=== PATIENT | female | born 1955 | race Caucasian/White ===

== ENCOUNTER → 2018-06-13 08:19 | Outpatient (CLI) | payer OTHER, SELFPAY ==
--- NOTE | 2018-06-13 08:23 | BI_ITS ---
MAMMOGRAPHY - BILATERAL SCREENING REASON FOR EXAM: Female, 63 years old. Routine annual screening examination. PERTINENT HISTORY: Non-contributory. TECHNIQUE: Digital bilateral breast manoj (3D mammographic acquisition) in the CC and MLO projections. 2-D mediolateral oblique (MLO) and craniocaudad (CC) views of both breasts were obtained. CAD: Full Field Digital Mammography with Computer Added Detection was performed. COMPARISON: Comparison is made with prior study date May 16, 2017. FINDINGS: Breast Composition: The breasts are heterogeneously dense, which may obscure small masses. There are no dominant masses or suspicious calcifications. Stable scattered bilateral microcalcifications. No focal cluster is seen. No other significant abnormalities are identified. There has been no significant change since the prior study. BI/SCREENING MAMM (CAD), BILAT IMPRESSION: Stable bilateral screening mammogram. Yearly follow-up mammogram recommended. (A) ASSESSMENT CATEGORY: BIRADS Category 2: Benign. A letter regarding these results will be sent to the patient by the facility within 30 days. Approximately 10% of breast cancers are not detected by mammography. A normal mammogram should not delay biopsy of a clinically suspicious abnormality. [id number] Electronically Signed: Reza Tee MD at 11:18 EDT Tel [phone], Service support ,
[2018-06-13 09:02] LABS: Cholesterol 258 mg/dL (200); High Density Lipoprotein 85 mg/dL; Triglycerides 46 mg/dL; Very Low Density Lipoprotein 9 mg/dL (5-40)
== END ==
PROVIDERS: Family Provider Family Medicine; PCP Family Medicine; Visit Provider Obstetrics & Gynecology
DX: Z12.31 Encounter for screening mammogram for malignant neoplasm of breast (principal); Z13.220 Encounter for screening for lipoid disorders
CPT/HCPCS: 36415; 77063; 77067; 80061

== ENCOUNTER → 2019-08-28 07:34 | Outpatient (CLI) | payer OTHER, SELFPAY ==
[2019-08-18 10:59] VITALS: BMI 20.7
--- NOTE | 2019-08-28 07:35 | BI_ITS ---
MAMMOGRAPHY - BILATERAL SCREENING 3-D TOMOSYNTHESIS REASON FOR EXAM: Female, 64 years old. Annual screening mammogram. PERTINENT HISTORY: History of breast cancer in sister at age 66. TECHNIQUE: 2-D mammograms and 3-D Tomosynthesis of the breast (s) were performed. CAD was performed. COMPARISON: June 13, 2018, May 16, 2017 FINDINGS: The breast composition is heterogeneously dense that can obscure small breast masses. Scattered benign calcifications are seen. No dense spiculated masses or suspicious microcalcifications are identified. No architectural distortion is identified. There is no skin thickening or retraction. There has been no significant change since the prior study. BI/SCREEN MAMM (CAD) W/KAYLA BILAT IMPRESSION: No mammographic signs of malignancy. Routine yearly mammograms recommended. ASSESSMENT CATEGORY: BIRADS Category 2: Benign. A letter regarding these results will be sent to the patient by the facility within 30 days. FOLLOW UP RECOMMENDATION: Yearly follow up mammogram recommended. (A) Approximately 10% of breast cancers are not detected by mammography. A normal mammogram should not delay biopsy of a clinically suspicious abnormality. Electronically Signed: Anmol Timmons MD at 11:50 EST , Service support ,
[2019-08-28 09:00] LABS: Anion Gap 6 (5-15); BUN 17 mg/dL (7-18); BUN/Creat Ratio 31.1 RATIO (10-20); Calcium,Total 8.9 mg/dL (8.5-10.1); Chloride 106 mmol/L (98-107); Cholesterol 247 mg/dL (200); Creatinine, Serum 0.55 mg/dL (0.55-1.02); EST Glomerular Filtration Rate 119 mL/min (>60); Est Glom Filt Rate - Afr Amer 144 mL/min (>60); Glucose 94 mg/dL (74-106); High Density Lipoprotein 91 mg/dL; Potassium 3.9 mmol/L (3.5-5.1); Sodium Level 142 mmol/L (136-145); Thyroid Stim Hormone (TSH) 1.53 uIU/mL (0.358-3.74); Triglycerides 47 mg/dL; Very Low Density Lipoprotein 9 mg/dL (5-40)
== END ==
LOC: OPBI 07:35 → PAVLAB 07:57
PROVIDERS: Family Provider Family Medicine; PCP Family Medicine; Referring Provider Obstetrics & Gynecology; Visit Provider Obstetrics & Gynecology
DX: Z01.419 Encounter for gynecological examination (general) (routine) without abnormal findings (principal); Z13.220 Encounter for screening for lipoid disorders; Z13.29 Encounter for screening for other suspected endocrine disorder; Z13.1 Encounter for screening for diabetes mellitus; Z12.31 Encounter for screening mammogram for malignant neoplasm of breast
CPT/HCPCS: 36415; 77063; 77067; 80048; 80061; 84443

== ENCOUNTER → 2020-09-20 11:35 | Outpatient (CLI) | payer OTHER, SELFPAY ==
[2019-08-18 10:59] VITALS: BMI 20.7
[2020-09-20 11:04] VITALS: BMI 21.7
--- NOTE | 2020-09-20 11:37 | BI_ITS ---
MAMMOGRAPHY - BILATERAL SCREENING REASON FOR EXAM: Female, 65 years old. Routine annual screening examination. PERTINENT HISTORY: Sister with breast cancer. TECHNIQUE: Digital bilateral breast kayla (3D mammographic acquisition) in the CC and MLO projections. 2-D mediolateral oblique (MLO) and craniocaudad (CC) views of both breasts were obtained. CAD: Full Field Digital Mammography with Computer Added Detection was performed. COMPARISON: Comparison is made with prior examination dated 08/28/2019 and 06/13/2018. FINDINGS: Breast Composition: The breasts are heterogeneously dense, which may obscure small masses. There are no dominant masses or suspicious calcifications. No other significant abnormalities are identified. There has been no significant change since the prior study. BI/SCRN MAMM (CAD)W/KAYLA BILAT IMPRESSION: Stable bilateral screening mammogram. Yearly follow-up mammogram recommended. (A) ASSESSMENT CATEGORY: BIRADS Category 1: Negative. A letter regarding these results will be sent to the patient by the facility within 30 days. Approximately 10% of breast cancers are not detected by mammography. A normal mammogram should not delay biopsy of a clinically suspicious abnormality. [id number] Electronically Signed: Reza Tee MD at 13:33 EST , Service support ,
== END ==
PROVIDERS: PCP Family Medicine; Referring Provider Obstetrics & Gynecology; Visit Provider Obstetrics & Gynecology
DX: Z12.31 Encounter for screening mammogram for malignant neoplasm of breast (principal); Z80.3 Family history of malignant neoplasm of breast
CPT/HCPCS: 77063; 77067

== ENCOUNTER → 2020-09-30 09:47 | Outpatient (CLI) | payer OTHER, SELFPAY ==
[2020-09-20 11:04] VITALS: BMI 21.7
--- NOTE | 2020-09-30 09:51 | BD_ITS ---
STUDY: DUAL ENERGY X-RAY ABSORPTIOMETRY / DXA REASON FOR EXAM: Female, 65 years old. 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 COMPARISON: Comparison is made with prior study dated 06/14/2017. FINDINGS: Lumbar Spine (L1-L4): g/cm2 (0.938) / T-score (-2.0) / Z-score (-0.5) Findings are suggestive of osteopenia with a moderate fracture risk. Left Femur Total: g/cm2 (0.809) / T-score (-1.6) / Z-score (-0.4) Left Femoral Neck: g/cm2 (0.806) / T-score (-1.7) / Z-score (-0.2) Right Femur Total: g/cm2 (0.787) / T-score (-1.8) / Z-score (-0.6) Right Femoral Neck: g/cm2 (0.797) / T-score (-1.7) / Z-score (-0.3) The T-Scores on the most recent prior examination were: Lumbar Spine (L1-L4): There has been worsening of bone density since the previous examination. Left Femur Total: which represents a worsening of 2.2%. Right Femur Total: which represents a worsening of 1.3%. BD/Dexa Bone Density Study IMPRESSION: The patient is considered osteopenic as outlined below according to World Carlin Organization (WHO) criteria with a moderate fracture risk. There has been worsening of bone density since the previous examination. Reference Information: The T-score is the number of standard deviations above or below the standard which is normal for young adults at their peak bone mineral density. The World Health Organization (WHO) interprets the T-scores as follows: Above -1 Normal bone density Between -1 and -2.5 Osteopenia Equal to / or below -2.5 Osteoporosis As a practical clinical guideline, osteopenia may be graded as follows: Mild -1 through -1.5 Moderate -1.6 through -2.0 Severe -2.1 through -2.4 The Z-score is the number of standard deviations above or below age-matched controls. A Z-score of less than -1.5 would be considered abnormal. References: 1. NIH Osteoporosis and Related Bone Diseases www osteo.org 2. International Society for Clinical Densitometry www iscd.org 3. National Osteoporosis Foundation www nof.org Electronically Signed: Reza Tee MD at 10:29 EST , Service support ,
== END ==
PROVIDERS: PCP Family Medicine; Referring Provider Nurse Practitioner Women's Health; Visit Provider Nurse Practitioner Women's Health
DX: M85.80 Other specified disorders of bone density and structure, unspecified site (principal)
CPT/HCPCS: 77080

== ENCOUNTER 2021-09-16 08:19 | Outpatient (CLI) | payer OTHER, SELFPAY ==
[2021-09-16 10:35] LABS: Anion Gap 4 (5-15); BUN 14 mg/dL (7-18); BUN/Creat Ratio 25.2 RATIO (10-20); Calcium,Total 9.3 mg/dL (8.5-10.1); Chloride 105 mmol/L (98-107); Cholesterol 245 mg/dL (200); Creatinine, Serum 0.56 mg/dL (0.55-1.02); EST Glomerular Filtration Rate 116 mL/min (>60); Est Glom Filt Rate - Afr Amer 141 mL/min (>60); Glucose 95 mg/dL (74-106); High Density Lipoprotein 78 mg/dL; Sodium Level 138 mmol/L (136-145); Thyroid Stim Hormone (TSH) 1.85 uIU/mL (0.358-3.74); Triglycerides 70 mg/dL; Very Low Density Lipoprotein 14 mg/dL (5-40)
== END 2021-09-16 23:59 | disposition short-term general hospital (02) ==
LOC: MTLAB 08:22
PROVIDERS: PCP Family Medicine; Referring Provider Family Medicine; Visit Provider Family Medicine
DX: E78.00 Pure hypercholesterolemia, unspecified (principal); M85.80 Other specified disorders of bone density and structure, unspecified site
CPT/HCPCS: 36415; 80048; 80061; 82306; 84443

== ENCOUNTER 2021-09-29 09:07 | Outpatient (CLI) | payer OTHER, SELFPAY ==
--- NOTE | 2021-09-29 09:09 | BI_ITS ---
MAMMOGRAPHY - BILATERAL SCREENING REASON FOR EXAM: Female, 66 years old. Routine annual screening examination. PERTINENT HISTORY: Sister with breast cancer. History of prior left needle breast biopsy. TECHNIQUE: Digital bilateral breast kayla (3D mammographic acquisition) in the CC and MLO projections. 2-D mediolateral oblique (MLO) and craniocaudad (CC) views of both breasts were obtained. CAD: Full Field Digital Mammography with Computer Added Detection was performed. COMPARISON: Comparison is made with prior study dated 09/20/2020 and 08/28/2019. FINDINGS: Breast Composition: The breasts are extremely dense, which lowers the sensitivity of mammography. There are no dominant masses or suspicious calcifications. Stable bilateral macrocalcifications. No other significant abnormalities are identified. There has been no significant change since the prior study. BI/SCRN MAMM (CAD)W/KAYLA BILAT IMPRESSION: Stable bilateral screening mammogram. Yearly follow-up mammogram recommended. (A) ASSESSMENT CATEGORY: BIRADS Category 2: Benign. A letter regarding these results will be sent to the patient by the facility within 30 days. Approximately 10% of breast cancers are not detected by mammography. A normal mammogram should not delay biopsy of a clinically suspicious abnormality. [id number] Electronically Signed: Reaz Tee MD at 10:07 EST ,
== END 2021-09-29 23:59 | disposition short-term general hospital (02) ==
LOC: OPBI 09:08
PROVIDERS: PCP Family Medicine; Referring Provider Obstetrics & Gynecology; Visit Provider Obstetrics & Gynecology
DX: Z12.31 Encounter for screening mammogram for malignant neoplasm of breast (principal)
CPT/HCPCS: 77063; 77067

== ENCOUNTER → 2022-09-13 | Outpatient (CLI) | payer OTHER, SELFPAY ==
--- NOTE | 2022-09-13 16:22 | RAD_ITS ---
STUDY: X-RAY - LEFT FOOT CLINICAL: Female, 67 years old. Pain. TECHNIQUE: 3 weightbearing view(s) of the foot. COMPARISON: None. FINDINGS: Normal talus, calcaneus, and tarsal bones. Normal visualized subtalar, talonavicular, calcaneocuboid, tarsal and tarsometatarsal articulations. Normal metatarsi. Postsurgical changes of hallux valgus repair with mild arthrosis of the first MTP joint. Mild arthrosis of the MTP and IP joints with minimal hammertoe deformities . Normal soft tissues. RAD/Foot min 3 Views IMPRESSION: Postsurgical changes of the first metatarsal with mild osteoarthritic change. No acute abnormality, chondrocalcinosis or erosive changes. Electronically Signed: Anmol Timmons, at 10:10 EST ,
== END | disposition home or self-care (01) ==
PROVIDERS: PCP Family Medicine; Referring Provider Podiatrist; Visit Provider Podiatrist
DX: M19.072 Primary osteoarthritis, left ankle and foot (principal); M20.42 Other hammer toe(s) (acquired), left foot; M20.12 Hallux valgus (acquired), left foot
CPT/HCPCS: 73630

== ENCOUNTER → 2022-10-03 | Outpatient (CLI) | payer OTHER, SELFPAY ==
--- NOTE | 2022-10-03 12:49 | BI_ITS ---
MAMMOGRAPHY - BILATERAL SCREENING REASON FOR EXAM: Female, 67 years old. Routine annual screening examination. PERTINENT HISTORY: Sister with breast cancer. Remote left breast aspiration. TECHNIQUE: Digital bilateral breast kayla (3D mammographic acquisition) in the CC and MLO projections. 2-D mediolateral oblique (MLO) and craniocaudad (CC) views of both breasts were obtained. CAD: Full Field Digital Mammography with Computer Added Detection was performed. COMPARISON: Comparison is made with prior examination of 03/29/2022 and 09/20/2020. FINDINGS: Breast Composition: The breasts are extremely dense, which lowers the sensitivity of mammography. There are no dominant masses or suspicious calcifications. No other significant abnormalities are identified. There has been no significant change since the prior study. BI/SCRN MAMM (CAD)W/KAYLA BILAT IMPRESSION: Stable bilateral screening mammogram. Yearly follow-up mammogram recommended. (A) ASSESSMENT CATEGORY: BIRADS Category 1: Negative. A letter regarding these results will be sent to the patient by the facility within 30 days. Approximately 10% of breast cancers are not detected by mammography. A normal mammogram should not delay biopsy of a clinically suspicious abnormality. [id number] Electronically Signed: Reza Tee MD at 13:56 EST ,
--- NOTE | 2022-10-03 12:54 | BD_ITS ---
STUDY: DUAL ENERGY X-RAY ABSORPTIOMETRY / DXA REASON FOR EXAM: Female, 67 years old. [id number] TECHNIQUE: Bone Mineral Density (BMD) measurements of lumbar spine and bilateral hips were obtained. COMPARISON: Comparison is made with prior study dated 09/30/2020. FINDINGS: Lumbar Spine (L1-L4): g/cm2 (0.753) / T-score (-2.7) / Z-score (-0.8) Findings are suggestive of osteoporosis with a high fracture risk. Left Femur Total: g/cm2 (0.781) / T-score (-1.3) / Z-score (0.0) Left Femoral Neck: g/cm2 (0.700) / T-score (-1.3) / Z-score (0.2) Right Femur Total: g/cm2 (0.720) / T-score (-1.8) / Z-score (-0.5) Right Femoral Neck: g/cm2 (0.635) / T-score (-1.9) / Z-score (-0.3) The T-Scores on the most recent prior examination were: Lumbar Spine (L1-L4): There has been worsening of bone density since the previous examination. Left Femur Total: which represents an improvement of 4.3%. Right Femur Total: which represents a worsening of 1%. BD/Dexa Bone Density Study IMPRESSION: The patient is considered osteoporotic as outlined below according to World Car[employer] Organization (WHO) criteria with a high fracture risk. There has been worsening of bone density since the previous examination. Reference Information: The T-score is the number of standard deviations above or below the standard which is normal for young adults at their peak bone mineral density. The World Health Organization (WHO) interprets the T-scores as follows: Above -1 Normal bone density Between -1 and -2.5 Osteopenia Equal to / or below -2.5 Osteoporosis As a practical clinical guideline, osteopenia may be graded as follows: Mild -1 through -1.5 Moderate -1.6 through -2.0 Severe -2.1 through -2.4 The Z-score is the number of standard deviations above or below age-matched controls. A Z-score of less than -1.5 would be considered abnormal. References: 1. NIH Osteoporosis and Related Bone Diseases www osteo.org 2. International Society for Clinical Densitometry www iscd.org 3. National Osteoporosis Foundation www nof.org Electronically Signed: Reza Tee MD at 9:59 EST ,
== END | disposition home or self-care (01) ==
LOC: OPBI 12:46
PROVIDERS: PCP Family Medicine; Referring Provider Obstetrics & Gynecology; Visit Provider Obstetrics & Gynecology
DX: Z00.00 Encounter for general adult medical examination without abnormal findings (principal); Z12.31 Encounter for screening mammogram for malignant neoplasm of breast; M81.0 Age-related osteoporosis without current pathological fracture; Z80.3 Family history of malignant neoplasm of breast; M85.80 Other specified disorders of bone density and structure, unspecified site
CPT/HCPCS: 77063; 77067; 77080

== ENCOUNTER → 2022-10-06 | Outpatient (CLI) | payer OTHER, SELFPAY ==
[2022-10-06 10:42] LABS: PTHIN 34.1 pg/mL (18.4-80.1)
[2022-10-06 10:45] LABS: Vitamin D,25 Hydroxy 28.4 ng/mL
[2022-10-06 10:48] LABS: Anion Gap 8 (5-15); BUN 19 mg/dL (7-18); BUN/Creat Ratio 32.8 RATIO (10-20); Calcium,Total 9.2 mg/dL (8.5-10.1); Chloride 103 mmol/L (98-107); Cholesterol 247 mg/dL (200); Creatinine, Serum 0.58 mg/dL (0.55-1.02); EST Glomerular Filtration Rate 111 mL/min (>60); Est Glom Filt Rate - Afr Amer 134 mL/min (>60); Glucose 89 mg/dL (74-106); High Density Lipoprotein 76 mg/dL; Magnesium 2.1 mg/dL (1.6-2.6); Phosphorus 3.6 mg/dL (2.5-4.9); Potassium 3.9 mmol/L (3.5-5.1); Sodium Level 140 mmol/L (136-145); Triglycerides 74 mg/dL; Very Low Density Lipoprotein 15 mg/dL (5-40)
== END | disposition home or self-care (01) ==
LOC: MTLAB 08:06
PROVIDERS: PCP Family Medicine; Referring Provider Family Medicine; Visit Provider Family Medicine
DX: M81.0 Age-related osteoporosis without current pathological fracture (principal)
CPT/HCPCS: 36415; 80048; 80061; 82306; 82330; 83735; 83970; 84100

== ENCOUNTER → 2023-11-12 | Outpatient (CLI) | payer MEDICARE, SELFPAY ==
--- NOTE | 2023-11-12 10:09 | BI_ITS ---
MAMMOGRAPHY - BILATERAL SCREENING REASON FOR EXAM: Female, 68 years old. Routine annual screening examination. PERTINENT HISTORY: Sister with breast cancer. History of prior left breast aspiration. TECHNIQUE: Digital bilateral breast kayla (3D mammographic acquisition) in the CC and MLO projections. 2-D mediolateral oblique (MLO) and craniocaudad (CC) views of both breasts were obtained. CAD: Full Field Digital Mammography with Computer Added Detection was performed. COMPARISON: Comparison is made with prior study dated October 03, 2022 and September 29, 2021. FINDINGS: Breast Composition: The breasts are extremely dense, which lowers the sensitivity of mammography. There are no dominant masses or suspicious calcifications. Stable benign-appearing bilateral calcifications. The calcifications in the right breast have central lucencies suggestive of possible dermal calcification. No other significant abnormalities are identified. There has been no significant change since the prior study. BI/SCRN MAMM (CAD)W/KYALA BILAT IMPRESSION: Stable bilateral screening mammogram. Yearly follow-up mammogram recommended. (A) ASSESSMENT CATEGORY: BIRADS Category 2: Benign. A letter regarding these results will be sent to the patient by the facility within 30 days. Approximately 10% of breast cancers are not detected by mammography. A normal mammogram should not delay biopsy of a clinically suspicious abnormality. [id number] Electronically Signed: Reza Tee MD at 13:43 EDT ,
== END | disposition home or self-care (01) ==
LOC: OPBI 10:07
PROVIDERS: PCP Family Medicine; Referring Provider Obstetrics & Gynecology; Visit Provider Obstetrics & Gynecology
DX: Z12.31 Encounter for screening mammogram for malignant neoplasm of breast (principal); Z80.3 Family history of malignant neoplasm of breast
CPT/HCPCS: 77063; 77067

== ENCOUNTER → 2023-11-20 | Outpatient (CLI) | payer MEDICARE, OTHER, SELFPAY ==
[2023-11-20 10:49] LABS: ALB/GLOB Ratio 1.3 RATIO (0.9-2.4); AST(SGOT) 18 U/L (15-37); Alanine Aminotransfer ALT/SGPT 20 U/L (13-56); Albumin, Serum 3.9 g/dL (3.2-5.0); Alkaline Phosphatase 63 U/L (45-117); Anion Gap 4 (5-15); BUN 15 mg/dL (7-18); BUN/Creat Ratio 26.4 RATIO (10-20); Calcium,Total 9.1 mg/dL (8.5-10.1); Chloride 106 mmol/L (98-107); Cholesterol 256 mg/dL (200); Creatinine, Serum 0.57 mg/dL (0.55-1.02); EST Glomerular Filtration Rate 113 mL/min (>60); Est Glom Filt Rate - Afr Amer 136 mL/min (>60); Glucose 92 mg/dL (74-106); High Density Lipoprotein 84 mg/dL; Potassium 4.1 mmol/L (3.5-5.1); Protein, Total 6.9 g/dL (6.4-8.2); Sodium Level 140 mmol/L (136-145); Thyroid Stim Hormone (TSH) 1.41 uIU/mL (0.358-3.74); Triglycerides 61 mg/dL; Very Low Density Lipoprotein 12 mg/dL (5-40)
== END | disposition home or self-care (01) ==
LOC: MTLAB 08:41
PROVIDERS: PCP Family Medicine; Referring Provider Obstetrics & Gynecology; Visit Provider Obstetrics & Gynecology
DX: E78.5 Hyperlipidemia, unspecified (principal); Z13.29 Encounter for screening for other suspected endocrine disorder; Z13.1 Encounter for screening for diabetes mellitus; Z13.220 Encounter for screening for lipoid disorders
CPT/HCPCS: 36415; 80053; 80061; 84443

== ENCOUNTER 2024-03-13 12:43 | Outpatient (CLI) | payer MEDICARE, OTHER, SELFPAY ==
[2024-03-13 13:03] VITALS: BP 108/70; PULSE 82; RESP 16; O2SAT 99; BMI 21.4
[2024-03-13] MEDS: 0.9% NaCl Peripheral Flush Adult/Peds IV (13:13)
[2024-03-13] MEDS: Zoledronic Acid 5 MG 100 ML 300 MG IV (13:13)
[2024-03-13 13:36] VITALS: BP 98/67; PULSE 75; RESP 16; O2SAT 99
== END 2024-03-13 23:59 | disposition home or self-care (01) ==
LOC: MEDOUTP 12:43
PROVIDERS: Referring Provider Internal Medicine Endocrinology, Diabetes & Metabolism; Visit Provider Internal Medicine Endocrinology, Diabetes & Metabolism
DX: M81.0 Age-related osteoporosis without current pathological fracture (principal)
CPT/HCPCS: 96365; A4216; J3489

== ENCOUNTER → 2024-11-17 | Outpatient (CLI) | payer MEDICARE, OTHER, SELFPAY ==
--- NOTE | 2024-11-17 12:50 | BI_ITS ---
EXAM: SCRN MAMM (CAD)W/KAYLA BILAT DATE: 11/17/2024 CLINICAL HISTORY: F, Age 69 y/o , SCREENING. History of sister with breast cancer. BREAST CANCER RISK ASSESSMENT: Not assessed. TECHNIQUE: Bilateral screening digital breast tomosynthesis with 2D and 3D images. Computer aided detection. COMPARISON: Prior exam(s) dating back to November 12, 2023.. FINDINGS: Bilateral Breast Mammographic Findings: No significant masses, calcifications or other abnormalities are identified. Stable bilateral scattered calcifications. TISSUE DENSITY: The breast tissue is heterogenously dense, which may obscure small masses. No suspicious masses, areas of developing architectural distortion, or suspicious calcifications. BI/SCRN MAMM (CAD)W/KAYLA BILAT IMPRESSION: Normal interval followup mammograms are recommended in 12 months. A letter with findings and recommendations will be mailed to the patient. ASSESSMENT: BIRADS 2 BENIGN FINDING RECOMMENDATION: 1: ROUTINE ANNUAL FOLLOW-UP Bilateral in 1 Year Reading Location: [place] [id number]
[2024-11-17 17:05] LABS: Absolute Lymphocyte Count 2.59 X10^3/uL (0.83-4.51); Absolute Neutrophil Count 2.8 X10^3/uL (2.0-7.7); Basophil# 0.05 X10^3/uL; Basophil% 0.8 % (0-1); Eosinophil# 0.15 X10^3/uL; Eosinophils% 2.5 % (0-5); Hematocrit 40.5 % (37-47); Hemoglobin 13.5 g/dL (12.0-15.0); Lymphocyte # 2.59 X10^3/ul (0.83-4.51); Lymphocyte % 42.7 % (19-41); Mean Corp Hgb Conc 33.3 g/dL (32-36); Mean Corpuscular Hgb 31.6 pg (27.0-32.0); Mean Corpuscular Volume 94.8 fL (81-99); Mean Platelet Vol. 10.2 fl (6.2-12.0); Monocyte# 0.44 X10^3/uL; Monocyte% 7.3 % (0-10); NRBC Flagged by Analyzer 0 % (0-5); Neutrophil # 2.82 X10^3/uL (2.7-7.7); Neutrophil % 46.5 % (47-70); Platelet Count 250 K/mm3 (150-450); RBC Distribution Width CV 12.8 % (11.6-14.6); RBC Distribution Width SD 44.5 fl (35.1-43.9); Red Blood Count 4.27 M/mm3 (4.2-5.4); White Blood Count 6.1 K/mm3 (4.4-11.0)
== END | disposition home or self-care (01) ==
PROVIDERS: PCP Family Medicine; Referring Provider Obstetrics & Gynecology; Visit Provider Obstetrics & Gynecology
DX: Z12.31 Encounter for screening mammogram for malignant neoplasm of breast (principal); Z80.3 Family history of malignant neoplasm of breast; R53.83 Other fatigue
CPT/HCPCS: 36415; 77063; 77067; 84439; 84443; 85025

== ENCOUNTER → 2025-02-20 | Outpatient (CLI) | payer MEDICARE, OTHER, SELFPAY ==
[2025-02-20 15:51] LABS: ALB/GLOB Ratio 1.9 RATIO (0.9-2.4); AST(SGOT) 22 U/L (<=31); Alanine Aminotransfer ALT/SGPT 16 U/L (<=34); Albumin, Serum 4.5 g/dL (3.4-4.8); Alkaline Phosphatase 51 U/L (35-104); Anion Gap 11 (5-15); BUN 14 mg/dL (4-19); BUN/Creat Ratio 23.3 RATIO (10-20); Calcium,Total 9.6 mg/dL (7.6-11.0); Carbon Dioxide 27.2 mmol/L (21.0-32.0); Chloride 102 mmol/L (98-108); Cholesterol 265 mg/dL (<=200); Creatinine, Serum 0.59 mg/dL (0.70-1.20); EST Glomerular Filtration Rate 98 (>60); Globulin 2.4 g/dL (2.2-4.2); Glucose 90 mg/dL (70-99); High Density Lipoprotein 83 mg/dL; Low Density Lipoprotein Calc. 170 mg/dL; Potassium 3.7 mmol/L (3.3-5.1); Protein, Total 6.9 g/dL (5.9-8.4); Sodium Level 140 mmol/L (133-145); Total Bilirubin 0.56 mg/dL (0.00-1.30); Triglycerides 62 mg/dL; Very Low Density Lipoprotein 12 mg/dL (5-40); Vitamin D,25 Hydroxy 56.1 ng/mL (30-100); cholesterol:hdl ratio screen 3.21
--- OUTSIDE RECORDS SUMMARY | 2025-02-20 17:22 | XMS RPT_ITS | CCD ---
Author Organization [facility] Care Team Providers Care Wine Blender Name Role Phone Gabriella Bhagat MD Unavailable [phone] ALEXEI Cuenca RN, Treasure Jacobo Unavailable Unavailabl Nevaeh Alfredo Unavailable Unavailable Dr. Nick Ardon Primary Care Provider Dr. Nick Ardon Referring Provider Dr. Gabriella Bhagat Attending Provider [phone] Dr. Nick Ardon Primary Care Provider Dr. Nick Ardon Referring Provider Dr. Gabriella Bhagat Attending Provider [phone] Salvador VALDEZ MD, Clifton Jacobo Primary Care Provider Yaima vailable AIDAN ARDON Referring Unavail able AIDAN ARDON Primary Care Unavail able Dr. Gabriella Bhagat MD Attending Provider Dr. Gabriella Bhagat MD Referring Provider Dr. Aidan Ardon MD Primary Care Provider Dr. Aidan Ardon MD Referring Provider Dr. Christiano Abebe MD Attending Provider [phone] Aidan Ardon Referring Unavailable Gabriella Bhagat Attending Unavailable Aidan Ardon Primary Care Unavailable Christiano Abebe Attending Unavailable Christiano Abebe Referring Unavailable Aidan Ardon Primary Care Unavailable Gabriella Bhagat Attending Unavailable Gabriella Bhagat Referring Unavailable Aidan Ardon Referring Unavailable Christiano Abebe Attending Unavailable Aidan Ardon Primary Care Unavailable Allergies Allergy Classification Reported Allergen(s) Allergy Type Date of Onset Reaction(s) Facility (1 source) ALLERGIES NOT ON FILE; Translations: [ALLERGIES NOT ON FILE] Propensity to adverse reactions (disorder) [facility] Repository Medications Current Medications Medication Drug Class(es) Dates Sig (Normalized) Sig (Original) cholecalciferol 0.025 mg oral capsule (9 sources) Vitamin D Start: 02-18-2024 take 1 capsule by mouth once daily Cholecalciferol (Vitamin D3) 25 mcg (1,000 unit) capsule Active 25 ug PO DAILY February 18, 2024 12:00am Start: 09-20-2020 End: 11-12-2023 take 1 capsule by mouth once daily Cholecalciferol (Vitamin D3) 50 mcg (2,000 unit) capsule Discontinued 50 ug PO DAILY September 20, 2020 1:00am November 12, 2023 11:11am CPAP (2 sources) Start: 05-28-2020 CPAP Indicatio ns: JED on CPAP Please provided patient with nasal pillow mask size extra small. Lifetime supplies. G47.33 JED 1 Device 05/28/2020 Active Start: 01-15-2020 CPAP Indicatio ns: Obstructive sleep apnea hypopnea, moderate Pressure change: AutoPAP 4.0 - 7.6 cm H2O. Set Ramp for increased time please. G47.33 1 Device 11 01/15/2020 Active cyclobenzaprine hydrochloride 10 mg oral tablet (1 source) Muscle Relaxant Start: 12-22-2020 take 1 tablet by mouth three times daily as needed cyclobenzaprine (FLEXERIL) 10 mg tablet Indications: Back strain, subsequent encounter Take 1 tablet by mouth three times daily as needed. 30 tablet 1 12/22/2020 Active estradiol 0.1 mg/ml vaginal cream (20 sources) Estrogen Start: 04-30-2024 Estradiol (Estrace) 0.01 % (0.1 mg/gram) cream Active 0 VAGINAL TWICE A WEEK 42.5 April 30, 2024 4:32pm fingertip/1cc vaginally twice a week; Start: 02-10-2024 End: 04-30-2024 Estradiol (Estrace) 0.01 % ( 0.1 mg/gram) cream Discontinued 1 g VAGINAL EVERY WEEK February 10, 2024 12:00am April 30, 2024 4:34pm Start: 09-29-2021 End: 03-11-2024 Estradiol (Estrace) 0.01 % ( 0.1 mg/gram) cream Discontinued 0 VAGINAL .COMPLEX 42.5 October 12, 2022 1:00am November 12, 2023 11:11am use fingertip amount or 1-2g every night vaginally x 2 weeks, then 1-3x weekly for maintenance Start: 09-29-2021 End: 11-12-2023 Estradiol (Estrace) 0.01 % ( 0.1 mg/gram) cream Discontinued 0 VAGINAL .COMPLEX 42.5 October 12, 2022 1:00am November 12, 2023 11:11am use fingertip amount or 1-2g every night vaginally x 2 weeks, then 1-3x weekly for maintenance Start: 06-13-2018 End: 09-20-2020 Estradiol (Estrace) 0.01 % ( 0.1 mg/gram) cream Discontinued 0 VAGINAL .COMPLEX 42.5 June 13, 2018 12:00am September 20, 2020 12:01pm use fingertip amount or 1-2g every night vaginally x 2 weeks, then 1-3x weekly for maintenance Start: 06-13-2018 End: 09-20-2020 Estradiol (Estrace) 0.01 % ( 0.1 mg/gram) cream Discontinued 0 VAGINAL .COMPLEX 42.5 June 13, 2018 12:00am September 20, 2020 12:01pm use fingertip amount or 1-2g every night vaginally x 2 weeks, then 1-3x weekly for maintenance Start: 06-01-2017 ESTRACE 0.1 MG /GM CREA use 1-2x weekly ESTRADIOL [id number] Gabriella Bhagat MD Start: 06-01-2017 ESTRACE 0.1 MG /GM CREA ESTRADIOL [id number] Nevaeh Perez Start: 06-01-2017 ESTRACE 0.1 MG /GM CREA use 1-2x weekly ESTRADIOL [id number] Gabriella Bhagat MD Start: 06-01-2017 ESTRACE 0.1 MG /GM CREA ESTRADIOL [id number] Nevaeh Perez Magnesium Citrate,Mag Oxide 250 mg capsule (2 sources) Start: 11-17-2024 take 1 mg by mouth every other day Magnesium Citrate,Mag Oxide 250 mg capsule Active mg PO .every other day November 17, 2024 12:00am Completed/Discontinued Medications Medication Drug Class(es) Dates Sig (Normalized) Sig (Original) amoxicillin 875 mg / clavulanate 125 mg oral tablet (2 sources) Penicillin-class Antibacterial Start: 02-10-2024 End: 02-17-2024 Amoxicillin-Pot Clavulanate 875-125 mg tablet Discontinued 1 {tbl} PO TWICE A DAY 14 7 February 10, 2024 12:00am February 16, 2024 12:00am February 17, 2024 12:06am azithromycin 250 mg oral tablet (2 sources) Macrolide Antimicrobial Start: 08-20-2024 End: 11-17-2024 Azithromycin 250 mg tablet Discontinued 0 PO .COMPLEX 6 August 20, 2024 1:00am November 17, 2024 1:20pm For 250 mg dose pack: take 500 mg today (day 1), then 250 mg for 4 days (days 2-5) PO calcium ascorbate 500 mg oral tablet (7 sources) Start: 09-20-2020 End: 03-13-2024 take 1 tablet by mouth once daily Ascorbate Calcium (Vitamin C) 500 mg tablet Discontinued 500 mg PO DAILY September 20, 2020 1:00am March 13, 2024 1:02pm calcium carbonate 648 mg oral tablet (6 sources) Start: 02-18-2024 End: 11-17-2024 take 1 tablet by mouth once daily Calcium Carbonate 260 mg calcium (648 mg) tablet Discontinued 260 mg PO DAILY February 18, 2024 12:00am November 17, 2024 1:20pm Start: 11-12-2023 End: 02-18-2024 take 1 tablet by mouth once daily Calcium Carbonate (Calcium 600) 600 mg calcium (1,500 mg) tablet Discontinued 600 mg PO DAILY November 12, 2023 12:00am February 18, 2024 1:24pm estrogens, conjugated ([facility]) 0.625 mg oral tablet (15 sources) Estrogen Start: 09-20-2020 End: 09-20-2020 Conjugated Estrogens (Premarin) 0.625 mg tablet Discontinued 0.625 mg PO .2 x q week September 20, 2020 1:00am September 20, 2020 12:13pm cyclically Start: 09-20-2020 End: 09-29-2021 Conjugated Estrogens (Premar in) 0.625 mg/gram cream Discontinued 0.625 mg VAGINAL .COMPLEX September 20, 2020 1:00am September 29, 2021 9:36am small amount vaginal twice a week estrogens, conju gated (PREMARIN VAGINAL) Use 1 application vaginally two times a week. 0 Active Drug Treatment Unknown - unknown (2 sources) No information a vailable. Zinc (7 sources) Start: 09-20-2020 End: 11-17-2024 take 1 tablet by mouth once daily Zinc 50 mg tablet Discontinued 50 mg PO DAILY September 20, 2020 1:00am November 17, 2024 1:21pm Start: 09-20-2020 take 50 mg by mouth once daily Zinc Active 50 MG PO DAILY September 20, 2020 1:00am Start: 09-20-2020 take 50 mg by mouth once daily Zinc Active 50 MG PO DAILY September 20, 2020 12:00am 100 ml zoledronic acid 0.05 mg/ml injection (2 sources) Bisphosphonate Start: 02-18-2024 End: 11-17-2024 Zoledronic Leld-Uftsubla-Upboh 5 mg/100 mL piggyback Discontinued 1 NMA .Route ONCE 100 February 18, 2024 12:00am November 17, 2024 1:21pm infuse over 20 minutes Problems Active Problems Problem Classification Problem Date Documented Da te Episodic/Chronic Anxiety disorders (1 source) Anxiety; Translations: [Anxiety disorder, unspecified] Onset: 12-26-2013 12-26-2013 Chronic Disorders of lipid metabolism (17 sources) Hypercholesterolemia ; Translations: [Hyperlipidemia] Onset: 10-05-2008 Resolved: 01-22-2015 06-01-2017 Chronic Comment on above: diet and lifestyle c tennille fu in 6 months if still high recommend pcp evaluation Menopausal disorders (12 sources) Atrophy of vagina; Translations: [Postmenopausal atrophic vaginitis] Onset: 11-17-2024 09-29-2021 Chronic Comment on above: estrace prescribed Nutritional deficiencies (1 source) Vitamin D deficiency, unspecified; Translations: [Vitamin D deficiency, unspecified] Onset: 02-16-2025 Chronic Osteoporosis (10 sources) Osteoporosis; Translations: [Age-related osteoporosis without current pathological fracture] Onset: 02-16-2025 11-12-2023 Chronic Other bone disease and musculoskeletal deformities (8 sources) Osteopenia; Translations: [Other specified disorders of bone density and structure, unspecified site] Onset: 04-19-2016 06-16-2018 Episodic Comment on above: encouraged 1200 ca a nd 800 u vit d Other female genital disorders (1 source) Dyspareunia; Translations: [Dyspareunia] Onset: 11-27-2013 04-19-2016 Chronic Other upper respiratory infections (2 sources) Maxillary sinusitis; Translations: [Chronic maxillary sinusitis] 02-10-2024 Chronic Residual codes; unclassified (4 sources) Sleep apnea; Translations: [Sleep apnea, unspecified] 11-12-2023 Chronic Residual codes; unclassified (1 source) Obstructive sleep apnea syndrome; Translations: [Obstructive sleep apnea (adult) (pediatric)] Onset: 08-30-2016 08-30-2016 Chronic Unclassified (5 sources) Encounter for screening for diabetes mellitus; Translations: [Mammography abnormal] Onset: 05-09-2016 Resolved: 01-20-2019 06-01-2017 Episodic Unclassified (2 sources) Gynecologic examination ; Translations: [Encounter for gynecological examination (general) (routine) without abnormal findings] Onset: 06-01-2017 06-01-2017 Unclassified (2 sources) Screening for osteoporosis ; Translations: [Other specified health status] Onset: 06-01-2017 06-01-2017 Unclassified (3 sources) Screening mammography ; Translations: [Encounter for screening mammogram for malignant neoplasm of breast] Onset: 05-11-2017 05-12-2017 Past or Other Problems Problem Classification Problem Date Documented Da te Episodic/Chronic Abdominal pain (1 source) Right upper quadrant pain; Translations: [Right upper quadrant pain] Onset: 10-06-2009 Resolved: 01-22-2015 01-22-2015 Episodic Essential hypertension (1 source) Benign essential hypertension; Translations: [Essential (primary) hypertension] Resolved: 01-20-2019 01-20-2019 Chronic Genitourinary symptoms and ill-defined conditions (1 source) Microscopic hematuria; Translations: [Other microscopic hematuria] Onset: 07-09-2008 Resolved: 01-22-2015 01-22-2015 Episodic Malaise and fatigue (5 sources) Fatigue; Translations: [Other fatigue] Onset: 11-17-2024 11-17-2024 Episodic Comment on above: labs ordered, discus sed fu with PCP Nonmalignant breast conditions (1 source) Fibrocystic disease of breast; Translations: [Diffuse cystic mastopathy of unspecified breast] Resolved: 01-22-2015 01-22-2015 Chronic Nonmalignant breast conditions (2 sources) Breast lump; Translations: [Unspecified lump in unspecified breast] Onset: 10-05-2008 Resolved: 01-20-2019 01-22-2015 Episodic Other connective tissue disease (1 source) Radial styloid tenosynovitis; Translations: [Radial styloid tenosynovitis] Onset: 10-30-2011 Resolved: 01-22-2015 01-22-2015 Episodic Other endocrine disorders (3 sources) Decreased estrogen level; Translations: [Other primary ovarian failure] Onset: 06-01-2017 06-01-2017 Episodic Other female genital disorders (1 source) Disorder of female genital system; Translations: [Unspecified condition associated with female genital organs and menstrual cycle] Onset: 11-27-2013 11-27-2013 Episodic Ovarian cyst (1 source) Cyst of ovary; Translations: [Unspecified ovarian cyst, unspecified side] Onset: 10-06-2009 Resolved: 01-22-2015 01-22-2015 Episodic Spondylosis; intervertebral disc disorders; other back problems (1 source) Pain in the coccyx; Translations: [Sacrococcygeal disorders, not elsewhere classified] Onset: 10-21-2020 10-21-2020 Episodic Urinary tract infections (1 source) Urethritis; Translations: [Other urethritis] Onset: 07-22-2008 Resolved: 01-22-2015 01-22-2015 Episodic Results Test Name Value Interpretation Reference Range Facility Endocrinology Visit Reporton 02-16-2025 Endocrinology Visit Report [facility] [address] [place] [address] OFFICE VISIT Date of Service: 02/16/25 MR#: [id number] Acct: [id number] Name: HELEN WILLOUGHBY Rep #: [id number] : 1955 Provider: Terri Pollack Age/Sex: 69/F Location: [facility] Status: Signed Intake Vital Signs 02/18/24 13:21 11/17/24 13:18 02/16/25 13:24 Height 5 ft 4 in 5 ft 4 in 5 ft 4 in Weight: 126 lb BMI 21.6 BP 110/67 Blood Pressure Location Lt brachial Position Sitting Pulse 70 Pulse Source Monitor Pulse Oximetry (%) 98 Oxygen Delivery Method room air Intake Visit Reasons: 1 Y FU Chief Complaint: Osteoporosis Financial Professional Required: No Accompanied by: Self Is patient in pain?: No Allergies No Known Allergies Allergy (Verified 02/16/25 13:26) Medications ???Medication ???Instructions ???Recorded ???Confirmed ???Type cholecalciferol (vitamin D3) 25 25 mcg PO DAILY 02/18/24 02/16/25 History mcg (1,000 unit) capsule estradiol 0.01% (0.1 mg/gram) See Rx Instructions vaginal 2XW 02/16/25 Rx vaginal cream (Estrace) #42.5 grams magnesium citrate,mag oxide 250 mg mg PO .every other day 11/17/24 02/16/25 History capsule zoledronic acid 5 mg/100 mL in 1 ea .Route ONCE #100 mL 02/16/25 02/16/25 Rx mannitol 5 %-water intravenous piggybck Have you fallen in the past year?: No PFSH Medical History Osteoporosis Lower back pain Surgical History History of LAVH History of tonsillectomy History of nasal surgery Family History Mother Heart disease Social History number of children: 3 current occupational status: retired Smoking Status: Never smoker alcohol intake: never substance use type: does not use what type of physical activity do you participate in: bicycling frequency: 5-6 times per week duration: 15-30 minutes/day seatbelt use: always do you feel safe at home: Yes 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 Lumbar Spine (L1-L4): g/cm2 (0.753) / T-score (-2.7) / Z-score (-0.8) Findings are suggestive of osteoporosis with a high fracture risk. Left Femur Total: g/cm2 (0.781) / T-score (-1.3) / Z-score (0.0) Left Femoral Neck: g/cm2 (0.700) / T-score (-1.3) / Z-score (0.2) Right Femur Total: g/cm2 (0.720) / T-score (-1.8) / Z-score (-0.5) Right Femoral Neck: g/cm2 (0.635) / T-score (-1.9) / Z-score (-0.3) The T-Scores on the most recent prior examination were: Lumbar Spine (L1-L4): There has been worsening of bone density since the previous examination. Left Femur Total: which represents an improvement of 4.3%. Right Femur Total: which represents a worsening of 1%. FRAX scores are 17% and 2.3% She started Reclast last year. She tolerated it well. No falls or fractures. ROS Const Constitutional: No fatigue, weakness or weight change Cardio Cardiology: No chest pain at rest, chest pain with exertion or shortness of breath Musc Musculoskeletal: Positive for joint pain (BL hips with activities); No numbness Neuro Neurology: No weakness or numbness Skin Skin: No wounds Endo Endocrine: No fatigue or weight change Exam Const General: cooperative, healthy appearing, comfortable, no acute distress, well developed and not cushingoid Nutritional Appearance: well nourished Orientation: alert, awake and oriented x3 HENMT Head: normal to inspection Ears: hearing grossly normal bilaterally Nose: external nose normal Mouth: oral mucosae normal Eyes General: appearance normal, both eyes and all related structures Alignment and Position: alignment normal Periorbital: periorbital findings normal Eyelids: eyelids normal Conjunctivae: conjunctivae normal Neck Neck: normal visual inspection Neck mass: No Thyroid: thyroid normal Lymphatic: no lymphadenopathy noted Chest Chest palpation inspection: normal inspection of the chest Resp Effort Inspection: normal respiratory effort, able to speak in complete sentences, symmetric chest movement, no audible wheezes and no cough Cardio Rate: regular rate Rhythm: regular rhythm Skin General: no rashes or lesions noted Neuro General: patient alert, patient awake and patient oriented x3 Cranial Nerves: CN's II-XI intact bilaterally Cognition: normal cognition Speech: speech normal Gait: normal gait Motor: muscle tone normal throughout Extrem General: no edema Psych Appearance: grossly normal Mental (more content not included)... Normal [facility] Absolute lymphocyte countOrd ered By: Gabriella Bhagat on 11-17-2024 Lymphocytes Auto (Unsp spec) [#/Vol] 2.59 10*3/uL 0.83-4.51 [facility] Absolute neutrophil countOrd ered By: Gabriella Bhagat on 11-17-2024 Neutrophils (Bld) [#/Vol] 2.8 10*3/uL 2.0-7.7 [facility] Automated lymphocyte count a s percentage of total leukocytesOrdered By: aGbriella Bhagat on 11-17-2024 Lymphocytes/100 WBC Auto (Unsp spec) 42.7 % High 19-41 [facility] Basophil percentageOrdered B y: Gabriella Yarbroughroseanneneftali on 11-17-2024 Basophils/100 WBC (Bld) 0.8 % 0-1 [facility] Breast imaging reportOrdered By: Reza Tee on 11-17-2024 Study report [facility] Imaging Services [address] [place], [place] [address] SCRN MAMM (CAD)W/KAYLA BILAT MR#: [id number] Acct: [id number] Name: HELEN WILLOUGHBY Rep #: [id number] : 1955 F 69 From: Gus Tee MD PCP: Dr. Aidan Ardon MD Status: [facility] Study:SCRN MAMM (CAD)W/KAYLA BILAT Date of Exa m: 11/17/24 Exam# [id number] Ordering Dr: Gabriella Batista MD EXAM: SCRN MAMM (CAD)W/KAYLA BILAT DATE: 11/17/2024 CLINICAL HISTORY: F, Age 69 y/o , SCREENING. History of sister with breast cancer. BREAST CANCER RISK ASSESSMENT: Not assessed. TECHNIQUE: Bilateral screening digital breast tomosynthesis with 2D and 3D images. Computeraided detection. COMPARISON: Prior exam(s) dating back to November 12, 2023.. FINDINGS: Bilateral Breast Mammographic Findings: No significant masses, calcifications or other abnormalities are identified. Stable bilateral scattered calcifications. TISSUE DENSITY: The breast tissue is heterogenously dense, which may obscure small masses. No suspicious masses, areas of developing architectural distortion, or suspicious calcifications. BI/SCRN MAMM (CAD)W/KAYLA BILAT IMPRESSION: Normal interval followup mammograms are recommended in 12 months. A letter with findings and recommendations will be mailed to the patient. ASSESSMENT: BIRADS 2 BENIGN FINDING RECOMMENDATION: 1: ROUTINE ANNUAL FOLLOW-UP Bilateral in 1 Year Reading Location: [place] [address] CC: Dr. Aidan Ardon MD; Dr. Gabriella Bhagat MD ~ Legal Nurse Consultant: Signed [facility] CBC W/Diff, Automatedon 11-01 Absolute Lymph 2.59 X10 3/uL Normal 0.83-4.51 [facility] Comment on above: Performed By: #### L [id number], L506.0400, L100.0100 #### [facility] [address] [place], [address] Absolute Neut 2.8 X10 3/uL Normal 2.0-7.7 [facility] Comment on above: Performed By: #### L [id number], L506.0400, L100.0100 #### [facility] [address] [place], [address] Basophils/100 WBC (Bld) 0.8 % Normal 0-1 [facility] Comment on above: Performed By: #### L [id number], L506.0400, L100.0100 #### [facility] [address] [place], [address] Eosinophils/100 WBC (Bld) 2.5 % Normal 0-5 [facility] Comment on above: Performed By: #### L [id number], L506.0400, L100.0100 #### [facility] [address] [place], [address] Erythrocyte distribution width (RBC) [Ratio] 12.8 % Normal 11.6-14.6 [facility] Comment on above: Performed By: #### L [id number], L506.0400, L100.0100 #### [facility] [address] [place], [address] Hematocrit (Bld) [Volume fraction] 40.5 % Normal 37-47 [facility] Comment on above: Performed By: #### L [id number], L506.0400, L100.0100 #### [facility] [address] [place], [address] Hemoglobin (Bld) [Mass/Vol] 13.5 g/dL Normal 12.0-15.0 [facility] Comment on above: Performed By: #### L [id number], L506.0400, L100.0100 #### [facility] [address] [place], [address] IG% 0.200 Normal 0.0-0.9 [facility] Comment on above: Result Comment: IG% - Immature Granulocytes (promyelocytes, myelocytes and metamyelocytes) > 1% indicates that a LEFT SHIFT is Present. Performed By: #### L 501.9520, L506.0400, L100.0100 #### [facility] [address] [place], [address] Lymphocytes/100 WBC (Bld) 42.7 % High 19-41 [facility] Comment on above: Performed By: #### L [id number], L506.0400, L100.0100 #### [facility] [address] [place], [address] MCH (RBC) [Entitic mass] 31.6 pg Normal 27.0-32.0 [facility] Comment on above: Performed By: #### L [id number], L506.0400, L100.0100 #### [facility] [address] [place], [address] MCHC (RBC) [Mass/Vol] 33.3 g/dL Normal 32-36 [facility] Comment on above: Performed By: #### L [id number], L506.0400, L100.0100 #### [facility] [address] [place], [address] MCV (RBC) [Entitic vol] 94.8 fL Normal 81-99 [facility] Comment on above: Performed By: #### L [id number], L506.0400, L100.0100 #### [facility] [address] [place], [address] Monocytes/100 WBC (Bld) 7.3 % Normal 0-10 [facility] Comment on above: Performed By: #### L [id number], L506.0400, L100.0100 #### [facility] [address] [place], [address] Neutrophils/100 WBC (Bld) 46.5 % Low 47-70 [facility] Comment on above: Performed By: #### L [id number], L506.0400, L100.0100 #### [facility] [address] [place], [address] Nucleated RBC (Bld) [#/Vol] 0 10*3/uL Normal 0-5 [facility] Comment on above: Performed By: #### L [id number], L506.0400, L100.0100 #### [facility] [address] [place], [address] Platelet mean volume (Bld) [Entitic vol] 10.2 fL Normal 6.2-12.0 [facility] Comment on above: Performed By: #### L [id number], L506.0400, L100.0100 #### [facility] [address] [place], [address] Platelets (Bld) [#/Vol] 250 10*3/uL Normal 150-450 [facility] Comment on above: Performed By: #### L [id number], L506.0400, L100.0100 #### [facility] [address] [place], [address] RBC (Bld) [#/Vol] 4.27 10*6/uL Normal 4.2-5.4 [facility] Comment on above: Performed By: #### L [id number], L506.0400, L100.0100 #### [facility] [address] [place], [address] RDW SD 44.5 fl High 35.1-43.9 [facility] Comment on above: Performed By: #### L [id number], L506.0400, L100.0100 #### [facility] [address] [place], [address] WBC (Bld) [#/Vol] 6.1 10*3/uL Normal 4.4-11.0 [facility] Comment on above: Performed By: #### L [id number], L506.0400, L100.0100 #### [facility] [address] [place], [address] Eosinophil percentageOrdered By: Gabriella Bhagat on 11-17-2024 Eosinophils/100 WBC (Bld) 2.5 % 0-5 [facility] Erythrocyte distribution wid th ratioOrdered By: Gabriella Bhagat on 11-17-2024 Erythrocyte distribution width (RBC) [Ratio] 12.8 % 11.6-14.6 [facility] Erythrocyte distribution wid th standard deviationOrdered By: Gabriella Bhagat on 11-17-2024 Erythrocyte distribution width (RBC) [Entitic vol] 44.5 fL High 35.1-43.9 [facility] Erythrocyte distribution width (RBC) [Ratio] 44.5 fl High 35.1-43.9 [facility] Hematocrit Auto (Bld) [Volum e fraction]Ordered By: Gabriella Bhagat on 11-17-2024 Hematocrit (Bld) [Volume fraction] 40.5 % 37-47 [facility] Hemoglobin measurementOrdere d By: Gabriella Bhagat on 11-17-2024 Hemoglobin (Bld) [Mass/Vol] 13.5 g/dL 12.0-15.0 [facility] Immature granulocytes/100 WB C Auto (Bld)Ordered By: Gabriella Bhagat on 11-17-2024 Immature granulocytes/100 WBC (Bld) 0.200 % 0.0-0.9 [facility] Comment on above: IG% - Immature Granu locytes (promyelocytes, myelocytes and metamyelocytes) > 1% indicates that a LEFT SHIFT is Present. Lymphocytes Auto (Unsp spec) [#/Vol]Ordered By: Gabriella Bhagat on 11-17-2024 Lymphocytes (Bld) [#/Vol] 2.59 10*3/uL 0.83-4.51 [facility] Lymphocytes/100 WBC Auto (Un sp spec)Ordered By: Gabriella Bhagat on 11-17-2024 Lymphocytes/100 WBC (Bld) 42.7 % High 19-41 [facility] MCV (mean corpuscular volume ) determinationOrdered By: Gabriella Bhagat on 11-17-2024 MCV (RBC) [Entitic vol] 94.8 fL 81-99 [facility] Mean corpuscular hemoglobin (MCH) determinationOrdered By: Gabriella Bhagat on 11-17-2024 MCH (RBC) [Entitic mass] 31.6 pg 27.0-32.0 [facility] Mean corpuscular hemoglobin concentration (MCHC) determinationOrdered By: Gabriella Bhagat on 11-17-2024 MCHC (RBC) [Mass/Vol] 33.3 g/dL 32-36 [facility] Mean platelet volume determi nationOrdered By: Gabriella Bhagat on 11-17-2024 Platelet mean volume (Bld) [Entitic vol] 10.2 fL 6.2-12.0 [facility] Monocyte percentageOrdered B y: Gabriella Bhagat on 11-17-2024 Monocytes/100 WBC (Bld) 7.3 % 0-10 [facility] Neutrophil percentageOrdered By: Gabriella Bhagat on 11-17-2024 Neutrophils/100 WBC (Bld) 46.5 % Low 47-70 [facility] Nucleated red blood cell per centageOrdered By: Gabriellahenry Bhagat on 11-17-2024 Nucleated RBC/100 WBC (Bld) [Ratio] 0 % 0-5 [facility] Head Buyer Tobacco Office Visit Reporton 11-17-2024 Head Buyer Tobacco Office Visit Report [facility] [address], [address] [place] [address] OFFICE VISIT Date of Service: 11/17/24 MR#: [id number] Acct: [id number] Name: HELEN WILLOUGHBY Rep #: [id number] : 1955 Provider: Dr. 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 Is patient in pain?: No Feel stressed/tense/nervous /anxious/difficulty sleeping: not at all Allergies No Known Allergies Allergy (Verified 11/17/24 13:20) Medications ???Medication ???Instructions ???Recorded ???Confirmed ???Type cholecalciferol (vitamin D3) 25 25 mcg PO DAILY 02/18/24 11/17/24 History mcg (1,000 unit) capsule estradiol 0.01% (0.1 mg/gram) See Rx Instructions vaginal 2XW 11/17/24 Rx vaginal cream (Estrace) #42.5 grams magnesium citrate,mag oxide 250 mg mg PO .every other day 11/17/24 11/17/24 History capsule Is last menstrual period known: No Post menopausal: Yes Patient : No : No PFSH Medical History (Updated 11/17/24 @ 14:[address] Gabriella Bhagat MD) Osteoporosis Lower back pain Surgical History (Updated 11/17/24 @ 14:[address] Gabriella Bhagat MD) History of LAVH History of tonsillectomy History of nasal surgery Family History Mother Heart disease Social History number of children: 3 current occupational status: retired Smoking Status: Never smoker alcohol intake: never substance use type: does not use what type of physical activity do you participate in: bicycling frequency: 5-6 times per week duration: 15-30 minutes/day seatbelt use: always do you feel safe at home: Yes additional social history: Mirimus History 3 Elective abortions Hx Para 3 Spontaneous abortions Hx # Term Pregnancies Ectopic pregnancies Hx # Pregnancies Multiple births # of living children 3 Past Pregnancies Del. Date Name GA/Weeks Outcome Route Bth Weight Gen Labor Lgth Anesthesia Del Locatn Provider FOB Unknown Tommie 1977 Unknown Yanni 1978 Unknown Francesco 1981 HPI Encounter for routine gynecological examination Details: HELEN WILLOUGHBY is a 69 year old who presents for annual exam. had increase in fatigue the last 4-5 months Last PAP: hysterectomy History of abnormal PAP: no severe Last mammogram: done today History of abnormal mammogram: Colon cancer screening: up to date 2015 Other preventative health care screenings: PCP Reva. PCP does not do routine labs. Dexa 2022. ROS Const Constitutional: Reports as per HPI and fatigue; Denies increased appetite, poor appetite, weight gain or weight loss Cardio Card: Denies chest pain Resp Resp: Denies cough or dyspnea GI GI: Reports as per HPI; Denies abdominal pain, bloating, constipation, nausea or vomiting : Reports as per HPI and other; Denies difficulty voiding, dysuria, hematuria, nipple discharge, pelvic pain, prolapse symptoms, urinary frequency, urinary incontinence, urinary urgency, vaginal discharge, vaginal dryness, vaginal odor or vaginal pruritus Skin Skin/Breast: Denies changing lesions, breast mass, breast pain, breast skin changes or nipple discharge Psych Psych: Denies anxiety or depression Exam Const General: cooperative, healthy appearing, comfortable, no acute distress, well developed and well groomed [facility] Head: normal to inspection and normocephalic Ears: hearing grossly normal bilaterally and external ears normal Nose: external nose normal Face and sinus: normal facial exam Neck Neck: normal visual inspection, full ROM and no lymphadenopathy Thyroid: thyroid normal Chest Chest palpation inspection: normal inspection of the chest Breast inspection: normal inspection of the breasts and normal inspection of the axillae Breast palpation: normal palpation of the breasts, normal palpation of the axillae and no axillary lymphadenopathy Resp Effort Inspection: normal respiratory effort GI Inspection: normal to inspection and non-distended Palpation: soft, no hepatosplenomegaly and no guarding General: bladder normal to palpation External Female Exam: normal external appearance, normal appearance of the urethra and no lesions Urethra: normal appearance of the urethra and normal palpation Speculum Exam - Vagina: normal appearance of the vagina and normal vaginal discharge Bimanual Exam- Vagina Uterus: bladder normal to palpation Bimanual Exam- Adnexa, other: normal adnexae, no (more content not included)... Normal [facility] Platelet countOrdered By: Maurizio Bhagat on 11-17-2024 Platelets (Bld) [#/Vol] 250 10*3/uL 150-450 [facility] RBC Auto (Bld) [#/Vol]Ordere d By: Gabriella Bhagat on 11-17-2024 RBC (Bld) [#/Vol] 4.27 10*6/uL 4.2-5.4 [facility] SCRN MAMM (CAD)W/KAYLA BILATo n 11-17-2024 SCRN MAMM (CAD)W/KAYLA BILAT [facility] Imaging Services [address] [place], [place] [address] SCRN MAMM (CAD)W/KAYLA BILAT MR#: [id number] Acct: [id number] Name: HELEN WILLOUGHBY Rep #: [id number] : 1955 F 69 From: Reza miranda MD PCP: Dr. Aidan Ardon MD Status: [facility] Study: SCRN MAMM (CAD)W/KAYLA BILAT Date of Exam: 11/01 03/27 Exam# [id number] Ordering Dr: Gabriella Bhagat EXAM: SCRN MAMM (CAD)W/KAYLA BILAT DATE: 11/17/2024 CLINICAL HISTORY: F, Age 69 y/o , SCREENING. History of sister with breast cancer. BREAST CANCER RISK ASSESSMENT: Not assessed. TECHNIQUE: Bilateral screening digital breast tomosynthesis with 2D and 3D images. Computer aided detection. COMPARISON: Prior exam(s) dating back to November 12, 2023.. FINDINGS: Bilateral Breast Mammographic Findings: No significant masses, calcifications or other abnormalities are identified. Stable bilateral scattered calcifications. TISSUE DENSITY: The breast tissue is heterogenously dense, which may obscure small masses. No suspicious masses, areas of developing architectural distortion, or suspicious calcifications. BI/SCRN MAMM (CAD)W/KAYLA BILAT IMPRESSION: Normal interval followup mammograms are recommended in 12 months. A letter with findings and recommendations will be mailed to the patient. ASSESSMENT: BIRADS 2 BENIGN FINDING RECOMMENDATION: 1: ROUTINE ANNUAL FOLLOW-UP Bilateral in 1 Year Reading Location: [place] [address] CC: Dr. Aidan Ardon MD; Dr. Gabriella Bhagat MD Legal Nurse Consultant: Signed Normal [facility] T4 Free Directon 11-17-2024 T4 FREE DIRECT 1.20 ng/dL Normal 0.76-1.46 [facility] Comment on above: Performed By: #### L [id number], L506.0400, L100.0100 #### [facility] [address] [place] [address]. [place], [place], [address] T4 freeOrdered By: Gabriella butler on 11-17-2024 Free T4 [Mass/Vol] 1.20 ng/dL 0.76-1.46 [facility] TSH DL <= 0.005 mIU/L QnOrde red By: Gabriella Bhagat on 11-17-2024 Thyroid Stimulating Hormone (TSH) 1.110 uIU/mL 0.300-4.200 [facility] TSH Qn 1.110 uIU/mL 0.300-4.200 [facility] Thyroid Stim Hormone (TSH)on 11-17-2024 TSH 1.110 uIU/mL Normal 0.300-4.200 [facility] Comment on above: Performed By: #### L [id number], L506.0400, L100.0100 #### [facility] [address] [place], [address] White blood cell (WBC) count Ordered By: Gabriella Bhagat on 11-17-2024 WBC (Bld) [#/Vol] 6.1 10*3/uL 4.4-11.[address] [facility] [address] CARDIAC SCORING WO IV CON TRASTon 05-15-2024 CT CARDIAC SCORING WO IV CONTRAST Interpreted By: Roger Bazzi, STUDY: CT CARDIAC SCORING WO IV CONTRAST; 05/15/2024 10:03 am INDICATION: Signs/Symptoms:.. ,Z00.00 Encounter for general adult medical examination without abnormal findings COMPARISON: None. ACCESSION NUMBER(S): [id number] ORDERING CLINICIAN: AIDAN ARDON TECHNIQUE: Using prospective ECG gating, CT scan of the coronary arteries was performed without intravenous contrast. Coronary calcium scoring was performed according to the method of [place]. FINDINGS: The score and distribution of calcium in the coronary arteries is as follows: LM 0 LAD 22.15 LCx 0 RCA 0 Total 22.15 The visualized mid/lower ascending thoracic aorta measures 3.6 cm in diameter. The heart is normal in size. No pericardial effusion is present. No gross evidence of mediastinal or hilar lymphadenopathy or masses is identified. The visualized segments of the lungs are normally expanded. A 6 mm nodule is seen in the left upper lobe anteriorly. This may be a granuloma but should be confirmed with a chest CT scan. The visualized subdiaphragmatic structures appear intact. IMPRESSION: 1. Coronary artery calcium score of 22.15 *Coronary artery calcium scoring may be helpful in predicting the risk for future coronary heart disease events. According to the [place] [employer] Clinical Expert Consensus Task Force, such testing provides important prognostic information in patients with more than one coronary heart disease risk factor. The coronary artery calcium score correlates with the annual risk of a non-fatal myocardial infarction or coronary heart disease . Coronary artery score Annual Risk 0-99 0.4% 100-399 1.3% >400 2.4% These three breakpoints correspond to lower, intermediate and high risk states for future coronary events. Such information should be used, along with appropriate clinical judgment, to make decisions regarding the intensity of risk factor management strategies to treat blood lipids and to modify other non-lipid coronary risk factors. Reference: [place] P et al. Circulation. 2007; 115:402-426 MACRO: None Signed by: Roger Bazzi 05/19/2024 9:22 AM Dictation workstation: [id number] [facility] CNPLeticia 03-25-2024 CNPN Telephone (GENSWS) HELEN WILLOUGHBY ([id number]) 1955 F Date Time Provider Department 03/25/24 NURSE GENS [facility] GENSWS During your visit today, we recorded the following information about you: Leeann Fox RN 03/25/2024 8:52 AM Signed Received request for 2019 colonoscopy report from [facility]. Faxed report, pathology report, and recommendations. Fax confirmation sheet received. Leeann Fox RN March 25, 2024 8:52 AM Allergies As of Date: 03/25/2024 (No Known Allergies) Date Reviewed: 11/29/2020 Reviewed by: Traci Nava ([facility])TATYANA - Fully Assessed Reason for Visit: Release Of Medical Records [2017] Prescriptions as of 03/25/2024 - cyclobenzaprine (FLEXERIL) 10 mg tablet Take 1 tablet by mouth three times daily as needed. - estrogens, conjugated (PREMARIN VAGINAL) Use 1 application vaginally two times a week. - CPAP Please provided patient with nasal pillow mask size extra small. Lifetime supplies. G47.33 JED - CPAP Pressure change: AutoPAP 4.0 - 7.6 cm H2O. Set Ramp for increased time please. G47.33 Problem List As Of Date 03/25/2024 Noted Resolved Diffuse cystic mastopathy [N60.19] 01/22/2015 Essential hypertension, benign [I10] 01/20/2019 Microscopic hematuria [R31.29] 07/09/2008 01/22/2015 Urethritis, unspecified [N34.2] 07/22/2008 01/22/2015 Pure hypercholesterolemia [E78.00] 10/05/2008 01/22/2015 Lump or mass in breast [N63.0] 10/05/2008 01/22/2015 Abdominal pain, right upper quadrant [R10.11] 10/06/2009 01/22/2015 Other and unspecified ovarian cyst [N83.209] 10/06/2009 01/22/2015 Tendonitis, deQuervains 10/30/2011 01/22/2015 Genital atrophy of female [N94.9] 11/27/2013 Dyspareunia (CODE) [N94.1] 11/27/2013 Anxiety [F41.9] 12/26/2013 Solitary cyst of left breast [N60.02] 08/06/2015 01/20/2019 Osteopenia [M85.80] 04/19/2016 Abnormal mammogram [R92.8] 05/09/2016 01/20/2019 Mixed hyperlipidemia [E78.2] 08/01/2016 Obstructive sleep apnea hypopnea, moderate [G47*08/30/2016 Coccyodynia [M53.3] 10/21/2020 Encounter Status:Closed by LEEANN FOX on 03/25/[address] [facility] [place] Basophil percentageOrdered B y: Gabriella Yarbroughjohn on 11-20-2023 Bilirubin [Mass/Vol] 0.80 mg/dL 0.20-1.00 [facility] Comment on above: For patients on eltr ombopag therapy, use of Dimension [place] TBIL is not recommended. Chloride [Moles/Vol] 106 mmol/L 98-107 [facility] Cholesterol [Mass/Vol] 256 mg/dL <200 [facility] Comment on above: <200 mg/dL Desirable 200-240 mg/dL Borderline >240 mg/dL High Risk Glucose [Mass/Vol] 92 mg/dL 74-106 [facility] Potassium [Moles/Vol] 4.1 mmol/L 3.5-5.1 [facility] Protein [Mass/Vol] 6.9 g/dL 6.4-8.2 [facility] Sodium [Moles/Vol] 140 mmol/L 136-145 [facility] Triglyceride [Mass/Vol] 61 mg/dL <199 [facility] Comment on above: The drugs N-Acetylcy steine and Metamizole may falsely depress this assay.Serum Triglycerides Reference Interval Normal <150 mg/dL Borderline high 150 - 199 mg/dL High 200 - 499 mg/dL Very High > or = 500 mg/dL Laboratory - Chemistry and C hemistry - challengeOrdered By: Gabriella Bhagat on 11-20-2023 Albumin/Globulin [Mass ratio] 1.3 {ratio} 0.9-2.4 [facility] ALP [Catalytic activity/Vol] 63 U/L 45-117 [facility] ALT [Catalytic activity/Vol] 20 U/L 13-56 [facility] Cholesterol in HDL [Mass/Vol] 84 mg/dL >40 [facility] Comment on above: The drugs N-Acetylcy steine and Metamizole may falsely depress this assay. Reference Range HDL <40 mg/dL Low HDL Cholesterol HDL >or= 60 mg/dL High HDL Cholesterol Cholesterol in LDL [Mass/Vol] 160 mg/dL 0-130 [facility] CO2 [Moles/Vol] 30.0 mmol/L 21.0-32.0 [facility] Globulin (S) [Mass/Vol] 3.0 g/dL 2.2-4.2 [facility] Urea nitrogen/Creatinine [Mass ratio] 26.4 mg/mg 10-20 [facility] No Panel InformationOrdered By: Gabriella Bhagat on 11-20-2023 Estimated GFR (MDRD) Amer 136 mL/min >60 [facility] Comment on above: GFR Calc Estimated GFR (MDRD) Non-Af Amer 113 mL/min >60 [facility] Comment on above: Non- GFR Calc VLDL Cholesterol 12 mg/dL 5-40 [facility] Serum or plasma calcium tony urement (mass/volume)Ordered By: Gabriella Bhagat on 11-20-2023 Calcium [Mass/Vol] 9.1 mg/dL 8.5-10.1 [facility] Serum or plasma creatinine m easurement (mass/volume)Ordered By: Gabriella Bhagat on 11-20-2023 Creatinine [Mass/Vol] 0.57 mg/dL 0.55-1.02 [facility] Comment on above: The validity of the calculated GFR & GFRAA in patients over 70 years has not been determined. Clinical correlation is essential. Serum or plasma thyroid stim ulating hormone (TSH) measurement (units/volume)Ordered By: Gabriella Bhagat on 11-20-2023 TSH Qn 1.41 uIU/mL 0.358-3.74 [facility] Serum or plasma urea nitroge n measurement (mass/volume)Ordered By: Gabriella Bhagat on 11-20-2023 Urea nitrogen [Mass/Vol] 15 mg/dL 7-18 [facility] Thin prep Papanicolaou smear with manual screeningOrdered By: Gabriella Bhagat on 11-20-2023 Thin prep Papanicolaou smear with manual screening 3.9 g/dL 3.2-5.0 [facility] Thin prep Papanicolaou smear with manual screening 18 U/L 15-37 [facility] Thin prep Papanicolaou smear with manual screening 4 5-15 [facility] Basophil percentageOrdered B y: Dr. Ardon on 10-06-2022 Basophil percentage 3.6 mg/dL 2.5-4.9 [facility] Chloride [Moles/Vol] 103 mmol/L 98-107 [facility] Cholesterol [Mass/Vol] 247 mg/dL <200 [facility] Comment on above: <200 mg/dL Desirable 200-240 mg/dL Borderline >240 mg/dL High Risk Glucose [Mass/Vol] 89 mg/dL 74-106 [facility] Potassium [Moles/Vol] 3.9 mmol/L 3.5-5.1 [facility] Sodium [Moles/Vol] 140 mmol/L 136-145 [facility] Triglyceride [Mass/Vol] 74 mg/dL <199 [facility] Comment on above: The drugs N-Acetylcy steine and Metamizole may falsely depress this assay.Serum Triglycerides Reference Interval Normal <150 mg/dL Borderline high 150 - 199 mg/dL High 200 - 499 mg/dL Very High > or = 500 mg/dL Laboratory - Chemistry and C hemistry - challengeOrdered By: Dr. Ardon on 10-06-2022 CO2 [Moles/Vol] 29.0 mmol/L 21.0-32.0 [facility] Magnesium [Mass/Vol] 2.1 mg/dL 1.6-2.6 [facility] Urea nitrogen/Creatinine [Mass ratio] 32.8 mg/mg 10-20 [facility] No Panel InformationOrdered By: Dr. Ardon on 10-06-2022 Estimated GFR (MDRD) Amer 134 mL/min >60 [facility] Comment on above: GFR Calc Estimated GFR (MDRD) Non-Af Amer 111 mL/min >60 [facility] Comment on above: Non- GFR Calc Ionized Calcium 5.5 mg/dL 4.5-5.6 [facility] Comment on above: Performed at: [place] [id number] Director: Clemente Sarmiento PhD, Phone: [phone] Parathyroid Hormone (Intact) 34.1 pg/mL 18.4-80.1 [facility] Vitamin D 25-Hydroxy 28.4 ng/mL [facility] Comment on above: Vitamin D 25(OH) Sta tus Range Deficiency <20 ng/mL (50nmol/L) Insufficiency 20 - 30 ng/mL (50 - 75 nmol/L) Sufficiency 30 - 100 ng/mL (75 - 250 nmol/L) Toxicity >100 ng/mL (>250 nmol/L) Serum or plasma calcium tony urement (mass/volume)Ordered By: Dr. Ardon on 10-06-2022 Calcium [Mass/Vol] 9.2 mg/dL 8.5-10.1 [facility] Serum or plasma cholesterol in HDL measurement (mass/volume)Ordered By: Dr. Ardon on 10-06-2022 Cholesterol in HDL [Mass/Vol] 76 mg/dL >40 [facility] Comment on above: The drugs N-Acetylcy steine and Metamizole may falsely depress this assay. Reference Range HDL <40 mg/dL Low HDL Cholesterol HDL >or= 60 mg/dL High HDL Cholesterol Serum or plasma cholesterol in VLDL measurement (mass/volume)Ordered By: Dr. Ardon on 10-06-2022 Cholesterol in VLDL [Mass/Vol] 15 mg/dL 5-40 [facility] Serum or plasma creatinine m easurement (mass/volume)Ordered By: Dr. Ardon on 10-06-2022 Creatinine [Mass/Vol] 0.58 mg/dL 0.55-1.02 [facility] Comment on above: The validity of the calculated GFR & GFRAA in patients over 70 years has not been determined. Clinical correlation is essential. Serum or plasma low density lipoprotein (LDL) cholesterol measurement (mass/volume)Ordered By: Dr. Ardon on 10-06-2022 Cholesterol in LDL [Mass/Vol] 156 mg/dL 0-130 [facility] Serum or plasma urea nitroge n measurement (mass/volume)Ordered By: Dr. Ardon on 10-06-2022 Urea nitrogen [Mass/Vol] 19 mg/dL 7-18 [facility] Thin prep Papanicolaou smear with manual screeningOrdered By: Dr. Ardon on 10-06-2022 Thin prep Papanicolaou smear with manual screening 8 5-15 [facility] Lab Report: Glucoseon 2016 Glucose mass conc 93 mg/dL Invalid Interpretation Code 70-110 [facility] [employer] Work Phone: Lab Report: Lipid Profileon 06-18-2017 Cholesterol in HDL mass conc 77 mg/dL Invalid Interpretation Code [facility] [employer] Work Phone: Cholesterol in LDL mass conc 143 mg/dL High 0-130 [facility] [employer] Work Phone: Cholesterol mass conc 234 mg/dL High 200 [facility] [employer] Work Phone: Lipoprotein.pre-beta mass conc 14 mg/dL Invalid Interpretation Code 5-40 [facility] [employer] Work Phone: Triglyceride mass conc 70 mg/dL Invalid Interpretation Code [facility] [employer] Work Phone: Office Visit: est annualon 0 06-01-2017 Documentation of current medications (procedure) Done Invalid Interpretation Code [facility] Documentation of current medications (procedure) T Invalid Interpretation Code [facility] Fall risk assessment No Invalid Interpretation Code [facility] Hemoglobin presence in stool not done Invalid Interpretation Code [facility] Tobacco smoking status NHIS Never Invalid Interpretation Code [facility] Tobacco smoking status NHIS Never smoker Invalid Interpretation Code [facility] [employer] Work Phone: Tobacco use [facility] Never smoker Invalid Interpretation Code [facility] Office Visit: est annualon 0 12-02-2012 Breast Mammogram screening Normal Bilateral Invalid Interpretation Code [facility] Vital Signs Date Time Vital Sign Value Performing Clinician Kandy chávez 02-16-2025 13:24-0400 Body height 162.[address] Gabriella Bhagat MD Work Phone: [facility] 02-16-2025 13:24-0400 Body mass index (BMI) [Ratio] 21.6 kg/m2 Dr. Gabriella Bhagat MD Work Phone: [phone] [place] [address] 02-16-2025 13:24-0400 Body weight 57.[address] Gabriella Bhagat MD Work Phone: [phone] [place] [address] 02-16-2025 13:24-0400 Diastolic blood pressure 67 mm[Hg] Dr. Gabriella Bhagat MD Work Phone: [phone] [place] [address] 02-16-2025 13:24-0400 Heart rate 70 /min Dr. Gabriella Bhagat MD Work Phone: [phone] [place] [address] 02-16-2025 13:24-0400 SaO2% (BldA) [Mass fraction] 98 % Dr. Gabriella Bhagat MD Work Phone: [facility] 02-16-2025 13:24-0400 Systolic blood pressure 110 mm[Hg] Dr. Gabriella Bhagat MD Work Phone: [phone] [place] [address] 11-17-2024 13:18-0400 Body height 162.[address] Gabriella Bhagat MD Work Phone: [phone] [address] [place] [place] [address] 11-17-2024 13:18-0400 Body mass index (BMI) [Ratio] 22.1 kg/m2 Dr. Gabriella Bhagat MD Work Phone: [facility] 11-17-2024 13:18-0400 Body weight 58.[address] Gabriella Bhagat MD Work Phone: [facility] 11-17-2024 13:18-0400 Diastolic blood pressure 70 mm[Hg] Dr. Gabriella Bhagat MD Work Phone: [facility] 11-17-2024 13:18-0400 Systolic blood pressure 108 mm[Hg] Dr. Gabriella Bhagat MD Work Phone: [facility] 11-12-2023 11:15-0400 Body height 162.[address] Nick Ardon Work Phone: [facility] 11-12-2023 11:10-0400 Body mass index (BMI) [Ratio] 21.9 kg/m2 Dr. Nick Ardon Work Phone: [facility] 11-12-2023 11:10-0400 Body weight 58.[address] Nick Ardon Work Phone: [facility] 11-12-2023 11:10-0400 Diastolic blood pressure 78 mm[Hg] Dr. Nick Ardon Work Phone: [facility] 11-12-2023 11:10-0400 Systolic blood pressure 116 mm[Hg] Dr. Nick Ardon Work Phone: [facility] 10-12-2022 11:37-0500 Body height 162.[address] Nick Ardon Work Phone: [facility] 10-12-2022 11:37-0500 Body mass index (BMI) [Ratio] 21.6 kg/m2 Dr. Nick Ardon Work Phone: [facility] 10-12-2022 11:37-0500 Body weight 57.[address] Nick Ardon Work Phone: [facility] 10-12-2022 11:37-0500 Diastolic blood pressure 63 mm[Hg] Dr. Nick Ardon Work Phone: [facility] 10-12-2022 11:37-0500 Systolic blood pressure 113 mm[Hg] Dr. Nick Ardon Work Phone: [facility] 06-01-2017 09:07-0400 BMI (Body Mass Index) 19.53 kg/m2 Gabriella Bhagat MD [facility] 06-01-2017 09:07-0400 Body Temperature 97.9 [degF] Gabriella Bhagat MD [facility] 06-01-2017 09:07-0400 BP Diastolic 79 mm[Hg] Gabriella Bhagat MD [facility] 06-01-2017 09:07-0400 BP Systolic 127 mm[Hg] Gabriella Bhagat MD [facility] 06-01-2017 09:07-0400 Height 165.1 cm Gabriella Bhagat MD [facility] 06-01-2017 09:07-0400 Pulse (Heart Rate) 80 /min Gabriella Bhagat MD [facility] 06-01-2017 09:07-0400 Respiratory Rate 16 /min Gabriella Bhagat MD [facility] 06-01-2017 09:07-0400 Weight 53.25 kg Gabriella Bhagat MD [facility] Encounters Encounter Date Encounter Type Care Provider Facility Start: 02-16-2025 End: 02-16-[address] Christiano Abebe MD -[facility] Work Phone: Start: 02-16-2025 End: 02-16-[address] Gabriella Bhagat MD Work Phone: [facility] Work Phone: Start: 11-17-2024 Encounter for gynecological examination (general) (routine) with abnormal findings Gabriella Bhagat [facility] Start: 11-17-2024 End: 11-17-[address] Gabriella Bhagat MD [facility] Start: 11-17-2024 End: 11-17-[address] Gabriella Bhagat MD Work Phone: [facility] Work Phone: Start: 11-17-2024 End: 11-17-[address] Gabriella Bhagat MD -[facility] Work Phone: Start: 11-17-2024 End: 11-17-2024 ambulatory Aidan Markgina Facility:[facility] Start: 05-15-2024 End: 05-15-2024 ambulatory [facility] Start: 05-15-2024 End: 05-15-2024 Encounter for general adult medical examination without abnormal findings [facility] Start: 03-25-2024 Telephone encounter Nurse [facility] Work Phone: General Surgery Comment on above: Release Of Medical R ecords Start: 03-13-2024 End: 03-13-2024 ambulatory Christiano Abebe Facility:[facility] Start: 11-20-2023 End: 11-20-[address] Nick Ardon Work Phone: [facility] Work Phone: Start: 11-20-2023 End: 11-20-[address] Nick Ardon Work Phone: [facility] Work Phone: Start: 11-12-2023 End: 11-12-[address] Nick Ardon Work Phone: [facility] Work Phone: Start: 11-12-2023 End: 11-12-[address] Nick Ardon Work Phone: [facility] Work Phone: Start: 10-12-2022 End: 10-12-[address] Nick Ardon Work Phone: [facility] Start: 10-06-2022 End: 10-06-[address] Nick Ardon Work Phone: [facility] Work Phone: Start: 10-06-2022 End: 10-06-[address] Nick Ardon [facility] Start: 10-03-2022 End: 10-03-[address] Nick Ardon Work Phone: [facility] Work Phone: Start: 10-03-2022 End: 10-03-[address] Nick Ardon Work Phone: [facility] Start: 09-13-2022 End: 09-13-2022 ambulatory [facility] Work Phone: Start: 09-13-2022 End: 09-13-2022 Patient encounter procedure [facility], [place] Procedures Date Procedure Procedure Detail Performing Clinician Start: 11-17-[address] Gabriella sherman MD Work Phone: Start: 11-12-[address] Nick fuentes Work Phone: Start: 10-03-2022 Dual energy X-ray absorptiometry Dr. Nick Ardon Work Phone: Start: 10-03-[address] Nick fuentes Work Phone: Start: 09-13-2022 X-ray of both feet Start: 10-21-2020 Lipid 1996 panel - Serum or Plasma Nurse Wstr Work Phone: Start: 09-19-2018 Colonoscopy Nurse Wstr Work Phone: Start: 06-01-2017 End: 06-18-2017 Glucose [Mass/volume] in Serum or Plasma Gabriella Bhagat MD Work Phone: Start: 06-01-2017 Gynecologic examination Inspector Plating annual exam Treasure Cuenca RN RN Start: 06-01-2017 End: 06-18-2017 Lipid 1996 panel - Serum or Plasma Gabriella Bhagat MD Work Phone: Start: 06-01-2017 Screening for osteoporosis Screeing for osteoporosis Treasure Cuenca RN RN Start: 06-01-2017 End: 06-01-2017 Documentation of current medications Treasure Cuenca RN RN Start: 05-11-2017 Screening mammography Screening mammogram for breast cancer Treasure Cuenca RN RN Start: 05-11-2017 Screening mammography Screening mammogram for breast cancer Nevaeh Perez Plan of Treatment Date Care Activity Detail Author Start: 09-19-2028 Screening for malignant neoplasm of colon [facility] Start: 10-21-2025 Lipid panel Lipid Screening [facility] Start: 05-04-2024 Influenza vaccination Influenza Vaccine (#1) [facility] Start: 11-12-2023 Patient referral [facility] Work Phone: Start: 10-21-2023 Diabetes Screening Diabetes Screening [facility] Start: 09-03-2023 Advance Directive Discussion Advance Directive Discussion [facility] Start: 09-03-2023 Behavioral Health Screening Behavioral Health Screening [facility] Start: 05-04-2023 Covid-19 Vaccine ( season) Covid-19 Vaccine ( season) [facility] Start: 09-20-2021 Screening for malignant neoplasm of breast Mammogram Screening [facility] Start: 2021 Pneumococcal Vaccine: 65+ (1 of 1 - PCV) Pneumococcal Vaccine: 65+ (1 of 1 - PCV) [facility] Start: 06-01-2017 End: 06-01-2017 Dxa bone density study 1/> sites axial skel Dual-energy X-ray absorptiometry (DXA), bone density study, 1 or more sites; [facility] [employer] Work Phone: Start: 06-01-2017 End: 06-18-2017 Glucose mass conc *Glucose, Fasting [facility] [employer] Work Phone: Start: 06-01-2017 End: 06-18-2017 Lipid 1996 panel *Lipid Profile [facility] [employer] Work Phone: Start: 06-01-2017 End: 06-01-2017 Appointment Appointment [facility] Start: 06-01-2017 End: 06-01-2017 Dxa bone density, axial Dual-energy X-ray absorptiometry (DXA), bone density study, 1 or more sites; [facility] Start: 06-01-2017 End: 06-01-2017 Glucose *Glucose, Fasting [facility] Start: 06-01-2017 End: 06-01-2017 Lipid panel [AGGREGATE] *Lipid Profile [facility] Start: 05-11-2017 End: 05-12-2017 Mammogram, screening Mammogram, Screening, both breasts [facility] Work Phone: Start: 05-11-2017 End: 05-12-2017 Mammogram, screening Mammogram, Screening, both breasts [facility] Start: 11-26-2016 Urine microalbumin profile DTaP,Tdap,Td Vaccine (2 - Tdap) [facility] Start: 2016 RSV Vaccine (1 - 1-dose 60+ series) RSV Vaccine (1 - 1-dose 60+ series) [facility] Start: 05-24-2007 Screening for malignant neoplasm of colon Fecal Occult Blood [facility] Start: 2006 Shingrix Vaccine (1 of 2) Shingrix Vaccine (1 of 2) [facility] Start: 2001 Screening for malignant neoplasm of colon [facility] Comprehensive metabo lic 1999 panel - Serum or Plasma [facility] Lipid 1996 panel - S biib or Plasma [facility] Patient referral [facility] Work Phone: Thyroid stimulating hormone measurement [facility] Vitamin D, 25-hydrox y measurement [facility] Immunizations Immunization Date Immunization Notes Care Provider Negrita graham 08-01-2016 influenza virus vacc ine, unspecified formulation Nurse Wstr Work Phone: [facility] 06-12-2007 hepatitis A vaccine, unspecified formulation Nurse Wstr Work Phone: [facility] 06-12-2007 hepatitis B vaccine, adult dosage Nurse Wstr Work Phone: [facility] 01-29-2007 hepatitis B vaccine, adult dosage Nurse Wstr Work Phone: [facility] 11-26-2006 diphtheria and tetan us toxoids, adsorbed for pediatric use Nurse Wstr Work Phone: [facility] 11-26-2006 hepatitis A vaccine, unspecified formulation Nurse Wstr Work Phone: [facility] 11-26-2006 hepatitis B vaccine, adult dosage Nurse Wstr Work Phone: [facility] Payers Date Payer Category Payer Self-pay [id number] 2023 Medicare [id number] 2023 Unknown [id number] 2019 Unknown MMO MMO [employer] PPO [id number] 2019-Present [phone] [address] [place] [address] PPO [id number] 1955 Unknown [id number] Unknown [facility] [id number] Unknown [id number] Unknown [id number] Unknown [id number] Unknown [id number] Social History Date Type Detail Facility Start: 09-29-2021 End: 11-12-2023 Tobacco smoking status NHIS Unknown if ever smoked [facility] Start: 1955 Sex [facility]igned At Female [facility] Start: 01-22-2015 End: 02-10-2024 Tobacco smoking status NHIS Never smoked tobacco [facility] Work Phone: Start: 01-22-2015 Tobacco use and exposure Smoke less tobacco non-user [facility] Start: 11-29-2020 Alcohol intake Current non-dr sausage linker of alcohol (finding) [facility] Start: 08-08-2020 End: 11-27-2020 History of Social function [facility] Start: 08-08-2020 End: 11-27-2020 Social connection and isolation panel [facility] Active Member of [facility] bs or Organizations Not on file [facility] Are you now , , , , never or living with a partner? [facility] Do you feel stress - tense, restless, nervous, or anxious, or unable to sleep at night because your mind is troubled all the time - these days [OSQ] Not at all [facility] (I/We) worried wheth er (my/our) food would run out before (I/we) got money to buy more. Never true [facility] In the past 12 month s, was there a time when you were not able to pay the mortgage or rent on time? No [facility] Start: 11-27-2020 Education [address] [facility] Start: 04-06-2020 Gender identity Identifies as female gender (finding) [facility] Start: 11-26-2024 Sex Female (finding) [facility] Evaluation note 11-17-2024 Note Date & Type Note Facility 11-17-2024 Evaluation note Diagnosis Onset Date Resolution Fatigue acute November 17 1:13pm Hyperlipidemia acute November 1:13pm Osteoporosis acute November 17, 2024 1:13pm Vaginal atrophy acute November 1:13pm Encounter for routine gynecological examination noneactive November 17, 2024 1:13pm [facility] Work Phone: Evaluation note 11-17-2024 Note Date & Type Note Facility 11-17-2024 Evaluation note Diagnosis Onset Date Resolution Fatigue acute November 17 1:13pm Hyperlipidemia acute November 1:13pm Osteoporosis acute November 17, 2024 1:13pm Vaginal atrophy acute November 1:13pm Encounter for routine gynecological examination noneactive November 17, 2024 1:13pm Osteoporosis acute February 16, 1:24pm [facility] Work Phone: Telephone encounter Note 03-25-2024 Telephone Encounter - Leeann Fox RN - 03/25/2024 8:51 AM EDT Note Date & Type Note Facility 03-25-2024 Telephone encount er Note Received request for 2019 [address] report [address] [facility]. Faxed report, pathology report, and recommendations. Fax confirmation sheet received. Leeann Fox RN March 25, 2024 8:[address] [facility] Note 03-25-2024 Telephone Encounter - Leeann Fox RN - 03/25/2024 8:51 AM EDT Note Date & Type Note Facility 03-25-2024 Miscellaneous Notes Formattin g of this note might be different from the original. Received request for 2019 [address] report [address] [facility]. Faxed report, pathology report, and recommendations. Fax confirmation sheet received. Leeann Fox RN March 25, 2024 8:52 AM documented in this encounter [facility] Evaluation note Note Date & Type Note Facility Evaluation note No assessment information availa ble [facility] Work Phone: Evaluation note Note Date & Type Note Facility Evaluation note Diagnosis Onset Date Encounter for routine gyneco logical examination noneactive [facility] Work Phone: Evaluation note Note Date & Type Note Facility Evaluation note Diagnosis Onset Date Hyperlipidemia acute Osteoporosis acute Vaginal atrophy acute Encounter for routine gyneco logical examination noneactive [facility] Work Phone: Hospital Discharge instructions Note Date & Type Note Facility Hospital Discharge instructions Ambulatory OrdersEndocrinology Location: None Selected [facility] Work Phone: Reason for referral (narrative) Note Date & Type Note Facility Reason for referral (narrative) No reason for referral information available [facility] Work Phone: Chief Complaint and Reason for Visit Chief Complaint 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) Reason for Visit Encounter for routin e gynecological examination Chief Complaint 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) Reason for Visit Hyperlipidemia Osteoporosis Vaginal atrophy Encounter for routine gynecological examination Chief Complaint 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 Reason for Visit Hyperlipidemia Osteoporosis Vaginal atrophy Encounter for routine gynecological examination Chief Complaint Admit Date SCREENING November 17, 2024 12: 28pm 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) November 17, 2024 1:1 3pm Reason for Visit Admit Date Fatigue November 17, 2024 1:1 3pm Hyperlipidemia November 17, 2024 1:1 3pm Osteoporosis November 17, 2024 1:1 3pm Vaginal atrophy November 17, 2024 1:1 3pm Encounter for routine gynecological exam ination November 17, 2024 1:13pm Chief Complaint Admit Date SCREENING November 17, 2024 12: 28pm 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) November 17, 2024 1:1 3pm 1 Y FU February 16, 2025 1:24 pm Reason for Visit Admit Date Fatigue November 17, 2024 1:1 3pm Hyperlipidemia November 17, 2024 1:1 3pm Osteoporosis November 17, 2024 1:1 3pm Vaginal atrophy November 17, 2024 1:1 3pm Encounter for routine gynecological exam ination November 17, 2024 1:13pm Osteoporosis February 16, 2025 1:24 pm Advance Directives No Advanced Directives Records FoundDocuments on File Type Date Recorded Patient Special Procedures Technologist Expl anation Advance Directive(s) 09/19/2018 9:57 AM Summary Purpose Family History No Family History Records Found Additional Source Comments Care Teams (unrecognized sec tion and content) Team Status: Active Member Role Status Dates Dr. Clifton Franco III, MD Family Provider Active Dr. Nick Ardon MD Primary Care Provider Activ e Team Status: Inactive Member Role Status Dates Dr. iNck Ardon MD Primary Care Provider Activ e Dr. Ana Carroll DPM Attending Provider, Referring Pr ovider Active Team Status: Inactive Member Role Status Dates Dr. Nick Ardon MD Primary Care Provider, Refe rring Provider Active Dr. Gabriella Bhagat MD Attending Provider Active Team Status: Inactive Member Role Status Dates Dr. Gabriella Bhagat MD Attending Provider, Referr ing Provider Active Dr. Nick Ardon MD Primary Care Provider Activ e Team Status: Active Member Role Status Dates Dr. Nick Ardon MD Primary Care Provider, Attending Provider, Referring Provider Active Team Status: Inactive Member Role Status Dates Dr. Nick Ardon MD Primary Care Provider, Attending Provider, Referring Provider Active Team Status: Inactive Member Role Status Dates Dr. Nick Ardon MD Primary Care Provider Activ e Dr. 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 Aidan Ardon MD Primary Care Provider Acti ve Team Status: Inactive Member Role Status Dates Dr. Gabriella Bhagat MD Attending Provider Active Start: November 17, 2024 End: November 17, 2024 Dr. Gabriella Bhagat MD Referring Provider Active Start: November 17, 2024 End: November 17, 2024 Dr. Aidan Ardon MD Primary Care Provider Acti ve Start: November 17, 2024 End: November 17, 2024 Team Status: Inactive Member Role Status Dates Dr. Gabriella Bhagat MD Attending Provider Active Start: November 17, 2024 End: November 17, 2024 Dr. Aidan Ardon MD Primary Care Provider Acti ve Start: November 17, 2024 End: November 17, 2024 Dr. Aidan Ardon MD Referring Provider Active Start: November 17, 2024 End: November 17, 2024 Team Status: Inactive Member Role Status Dates Dr. Christiano Abebe MD Attending Provider Active Sta rt: February 16, 2025 End: February 16, 2025 Dr. Aidan Ardon MD Primary Care Provider Acti ve Start: February 16, 2025 End: February 16, 2025 Dr. Aidan Ardon MD Referring Provider Active Start: February 16, 2025 End: February 16, 2025 Goals (unrecognized section and content) Goals may be documented in a n alternate sectionGoals may be documented in an alternate sectionGoals may be documented in an alternate sectionGoals may be documented in an alternate sectionGoals may be documented in an alternate sectionGoals may be documented in an alternate sectionGoals may be documented in an alternate section Source Comments (unrecognize d section and content) In the event this informatio n is protected by the Federal Confidentiality of Alcohol and Drug Abuse Patient Records regulations: The Federal rules restrict any use of the information to criminally investigate or prosecute any alcohol or drug abuse patient.[facility] Reason for Visit (unrecogniz ed section and content) Reason Comments Release Of Medical Records INFORMATION SOURCE (unrecogn ized section and content) DATE CREATED AUTHOR 03/27/2024 [facility] DATE CREATED AUTHOR AUTHOR'S ORGANIZ ATION 05/23/2024 [facility] DATE CREATED AUTHOR AUTHOR'S ORGANIZ ATION 02/18/2025 [facility] FOR RECORDS PERTAINING TO PATIENTS WHO ARE OR HAVE BEEN ENROLLED IN A CHEMICAL DEPENDENCY/SUBSTANCEABUSE PROGRAM, SOME INFORMATION MAY BE OMITTED. This clinical summary was aggregated from multiple sources. Caution should be exercised in using it in the provision of clinical care. This summary normalizes information from multiple sources, and as a consequence, information in this document may materially change the coding, format and clinical context of patient data. In addition, data may be omitted in some cases. CLINICAL DECISIONS SHOULD BE BASED ON THE PRIMARY CLINICAL RECORDS. [employer] [facility]. provides no warranty or guarantee of the accuracy or completeness of information in this document.
== END | disposition home or self-care (01) ==
LOC: MTLAB 11:19
PROVIDERS: PCP Family Medicine; Referring Provider Internal Medicine Endocrinology, Diabetes & Metabolism; Visit Provider Family Medicine
DX: E55.9 Vitamin D deficiency, unspecified (principal); E03.9 Hypothyroidism, unspecified; M81.0 Age-related osteoporosis without current pathological fracture
CPT/HCPCS: 36415; 80053; 80061; 82306

== ENCOUNTER 2025-03-16 11:04 | Outpatient (CLI) | payer MEDICARE, OTHER, SELFPAY ==
[2025-03-16 11:28] VITALS: BP 119/60; PULSE 65; RESP 16; TEMP 36.4; O2SAT 99; BMI 21.4
[2025-03-16] MEDS: 0.9% NaCl Peripheral Flush Adult IV (11:35)
[2025-03-16 12:00] VITALS: BP 123/81; PULSE 61; RESP 16
== END 2025-03-16 23:59 | disposition home or self-care (01) ==
LOC: MEDOUTP 11:04
PROVIDERS: PCP Family Medicine; Referring Provider Internal Medicine Endocrinology, Diabetes & Metabolism; Visit Provider Internal Medicine Endocrinology, Diabetes & Metabolism
DX: M81.0 Age-related osteoporosis without current pathological fracture (principal)
CPT/HCPCS: 96365; A4216; J3489